=== PATIENT | female | born 1990 | race Caucasian/White ===

== ENCOUNTER → 2019-06-17 | Outpatient (REF) | payer OTHER, MEDICAID | LOC: M SFHCWAGY 13:15 | PROVIDERS: ATTEND Advanced Practice Midwife | DX: Z12.4 Encounter for screening for malignant neoplasm of cervix (principal) ==

== ENCOUNTER → 2019-06-28 | Outpatient (CLI) | payer OTHER ==
--- NOTE | 2019-06-28 11:30 | REP ---
Clinical: Anatomical evaluation. Comparison: None . Findings: Examination demonstrates a single live intrauterine in cephalic presentation. motion is identified by technologist. Placenta is noted left lateral and grade zero without evidence for placenta previa or abruption. Amniotic fluid volume is normal. Cervix measures 5.1 cm in length and appears closed. No evidence for nuchal cord. Gestational age by LMP 18 weeks 4 days with SANJEEV 11/25/2019 . Gestational age by current measurements 18 weeks 3 days with SANJEEV 11/26/2019 . FHR equals 147 beats per minute. BPD 4.2 cm 18 weeks 5 days HC 15.4 cm 18 weeks 2 days AC 13.1 cm 18 weeks 4 days FL 2.7 cm 18 weeks 3 days HL 2.6 cm 18 weeks 2 days HC/AC ratio 1.17 Estimated weight 243 grams (43rd percentile). Anatomical assessment demonstrates normal structures including cranium, choroid plexus, cavum, cerebellum/posterior fossa, lungs, diaphragm, stomach, cord insertion/three-vessel cord, kidneys/bladder, spine, and extremities. Impression: 1. Single live intrauterine in cephalic presentation demonstrating appropriate interval growth. 2. Limited evaluation of the facial features and heart/cardiac ventricular outflow tracts. Remainder of the anatomical assessment is complete and normal. Electronically Signed by Jonathan Quiles MD 06/28/2019 11:22 A
== END ==
LOC: M RAD 10:06
PROVIDERS: ATTEND Obstetrics & Gynecology
DX: Z34.81 Encounter for supervision of other normal pregnancy, first trimester (principal)

== ENCOUNTER → 2019-07-27 | Outpatient (CLI) | payer OTHER ==
--- NOTE | 2019-07-28 04:59 | REP ---
Clinical: Anatomical evaluation. Comparison: 06/28/2019 . Findings: Examination demonstrates a single live intrauterine in breech presentation. motion is identified by technologist. Placenta is noted left lateral and grade zero without evidence for placenta previa or abruption. Amniotic fluid volume is normal. Cervix measures 4.8 cm in length and appears closed. No evidence for nuchal cord. Gestational age by LMP 22 weeks 5 days with SANJEEV 11/25/2019 . Gestational age by current measurements 21 weeks 6 days. FHR equals 139 beats per minute. Estimated weight 486 grams ( 30th percentile). Anatomical assessment demonstrates normal structures including cranium, choroid plexus, cavum, cerebellum/posterior fossa, facial features (nose and lips), lungs, four-chamber heart, diaphragm, stomach, cord insertion/three-vessel cord, kidneys/bladder, and extremities. Impression: 1. Single live intrauterine in breech presentation demonstrating appropriate interval growth. 2. Continued limited evaluation of the facial profile and cardiac ventricular outflow tracts. Remainder of the anatomical assessment is complete and normal.
== END ==
LOC: M WHC 09:51
PROVIDERS: ATTEND Advanced Practice Midwife
DX: Z34.92 Encounter for supervision of normal pregnancy, unspecified, second trimester (principal); Z3A.22 22 weeks gestation of pregnancy

== ENCOUNTER → 2019-08-22 | Outpatient (REF) | payer OTHER | LOC: M LAB REF 15:08 | PROVIDERS: ATTEND Physician Assistant Medical | DX: R50.9 Fever, unspecified (principal) ==

== ENCOUNTER → 2019-10-14 | Outpatient (REF) | payer OTHER, MEDICAID ==
[2019-10-14 13:57] LABS: HEMATOCRIT 34.1 % (36.0-47.0); HEMOGLOBIN 11.8 g/dl (12.0-15.5); MEAN CORPUSCULAR HEMOGLOBIN 34.1 pg (27.0-33.0); MEAN CORPUSCULAR HGB CONC 34.6 g/dl (32.0-36.5); MEAN CORPUSCULAR VOLUME 98.6 fl (80.0-96.0); PLATELET COUNT, AUTOMATED 294 10^3/uL (150-450); RED BLOOD COUNT 3.46 10^6/uL (4.00-5.40); WHITE BLOOD COUNT 11.7 10^3/uL (4.0-10.0)
== END ==
LOC: M PLALAB 11:48
PROVIDERS: ATTEND Nurse Practitioner Women's Health
DX: Z34.03 Encounter for supervision of normal first pregnancy, third trimester (principal)

== ENCOUNTER → 2019-10-28 | Outpatient (REF) | payer OTHER, MEDICAID | LOC: M PLALAB 12:09 | PROVIDERS: ATTEND Advanced Practice Midwife | DX: Z36.85 Encounter for antenatal screening for Streptococcus B (principal); Z36.89 Encounter for other specified antenatal screening; Z3A.00 Weeks of gestation of pregnancy not specified ==

== ENCOUNTER 2019-12-02 03:03 | Inpatient (IN) | payer MEDICAID, OTHER ==
[2019-12-02] VITALS (19 sets, daily range): BP systolic 107–145; BP diastolic 57–89
[~2019-12-02] VITALS: Ht 162.6 cm; Wt 88.0 kg
[2019-12-02 04:12] LABS: HEMATOCRIT 33.6 % (36.0-47.0); MEAN CORPUSCULAR HEMOGLOBIN 34.3 pg (27.0-33.0); MEAN CORPUSCULAR HGB CONC 35.7 g/dl (32.0-36.5); PLATELET COUNT, AUTOMATED 261 10^3/uL (150-450); WHITE BLOOD COUNT 12.6 10^3/uL (4.0-10.0)
[2019-12-02] MEDS ORDERED: OMEP10CASR PO (04:54)
[2019-12-02] MEDS ORDERED: BUTORPHANOL 2 MG/ML INJ (J0595) As Ordered ONE (05:53)
[2019-12-02] MEDS ORDERED: PROMETHAZINE INJ 25 MG/ML VIAL (J2550) IV ONE ×2 (06:00→11:15)
[2019-12-02] MEDS ORDERED: BUTORPHANOL 2 MG/ML INJ (J0595) IV ONE ×2 (06:00→11:15)
[2019-12-02] MEDS: LR 1,000 ML IV SCH ×2 (06:28→17:04)
--- NOTE | 2019-12-02 15:47 | HPE ---
DATE OF ADMISSION: 12/02/2019 My is a 29-year-old 1, para 0 at 41 weeks gestation, estimated date of confinement (EDC) of 11/25/2019 based on last menstrual period. She presents to labor and delivery today with report of onset of uncomfortable contractions at approximately 12:30. She does deny leakage of fluid and does report positive bloody show. The fetus has been active. Her care was [facility] at [facility] at 17 weeks' gestation. course has been relatively uncomplicated. OBSTETRICAL HISTORY: Primigravida. OBSTETRIC LABORATORIES: O positive, antibody screen negative, syphilis negative, hepatitis B surface antigen negative, HIV negative, hepatitis C antibody nonreactive. Gonorrhea and chlamydia negative. Rubella immune. Urine culture negative. GBS negative. She did not undergo the 1-hour gestational diabetic screening. PAST MEDICAL HISTORY: Has never had a Pap smear. FAMILY HISTORY: Colorectal cancer. SURGERIES: None. SOCIAL HISTORY: The patient is . Her is not present with her. She is a nonsmoker. She denies alcohol and drug use. She denies history of any sexually transmitted infections, and she denies history of abuse, physical, sexual, and emotional. ALLERGIES: No known drug allergies. CURRENT MEDICATIONS: vitamins. OBJECTIVE: Pulse 96, blood pressure (BP) 145/89. She does appear very uncomfortable with her contractions. heart rate is 140 with moderate variability, positive accelerations, negative decelerations. Contractions every 2 minutes. They do palpate strong. Abdomen is gravid, cephalic presentation. Estimated weight 7-1/2 to 8 pounds. Sterile vaginal exam is 2, 90, and -3 per BRENDA Saxena. ASSESSMENT: Intrauterine at 41 weeks. heart rate category 2. Active labor. PLAN: Admit the patient to labor and delivery. Saline lock. Routine labs. Out of bed ad nadine at this time. The patient currently would like to cope with her labor physiologically and is encouraged to use hydrotherapy. I do anticipate continued labor progress and a spontaneous vaginal delivery.
[2019-12-02] MEDS ORDERED: OXYTOCIN 30 UNITS IN 0.9% NaCl 500ML IV BAG (J2590) As Ordered ONE (15:51)
[2019-12-02] MEDS ORDERED: OXYTOCIN DRIP 30 UNITS in IV 1 EA IV SCH (16:00)
[2019-12-02] MEDS ORDERED: FENTANYL 2MCG/ML ROPIVACAINE 0.2% IN 0.9% NACL 100ML IVBAG As Ordered ONE (16:15)
[2019-12-02] MEDS ORDERED: LACTATED RINGER'S 1000 ML IV PRN (17:15)
[2019-12-02] MEDS ORDERED: EPIDURAL/PCA KEYS XX PRN (17:15)
[2019-12-02] MEDS ORDERED: NALOXONE INJ 0.4MG/1ML VIAL (J2310 PER 1MG) IV PRN (17:15)
[2019-12-02] MEDS ORDERED: FENTANYL/ROPIVACAINE/NACL BAG 100 ML EPIDURAL SCH (17:15)
[2019-12-02] MEDS ORDERED: ONDANSETRON 4MG/2ML VIAL IV PRN (17:15)
[2019-12-02] MEDS ORDERED: ePHEDrine SULFATE 25 MG/5 ML(5MG/ML) SYRINGE IV PRN (17:15)
[2019-12-02] MEDS ORDERED: EPIDURAL COMMENT XX SCH (17:15)
[2019-12-02] MEDS ORDERED: diphenhydrAMINE 50MG/ML VIAL (J1200) IV PRN (17:15)
[2019-12-02] MEDS ORDERED: REFRIGERATOR IV KEYS XX PRN (17:15)
[2019-12-03] MEDS ORDERED: LR 1,000 ML IV SCH (02:57)
[2019-12-03] MEDS ORDERED: OXYTOCIN DRIP 30 UNITS in IV 1 EA IV SCH (02:57)
[2019-12-03] MEDS ORDERED: MEASLES,MUMPS,RUBELLA VACCINE INJ (MMR-II) (90707) SC SCH (03:00)
[2019-12-03] MEDS ORDERED: PROMETHAZINE 25 MG TAB PO PRN (03:00)
[2019-12-03] MEDS ORDERED: RHOGAM 300 MCG (1500 IU) INJ (J2790) IM SCH (03:00)
[2019-12-03] MEDS ORDERED: ACETAMINOPHEN TAB 650MG DOSE (2X325MG) PO PRN (03:00)
[2019-12-03] MEDS ORDERED: DIBUCAINE 1% OINTMENT 30GM TOP PRN (03:00)
[2019-12-03] MEDS ORDERED: IBUPROFEN 600 MG TAB PO PRN (03:00)
[2019-12-03] MEDS ORDERED: ACETAMINOPHEN 500 MG TAB PO PRN (03:00)
[2019-12-03] MEDS ORDERED: ONDANSETRON 4MG/2ML VIAL IV PRN (03:00)
[2019-12-03] MEDS ORDERED: DOCUSATE SODIUM 100 MG CAP PO PRN (03:00)
[2019-12-03] MEDS: IBUPROFEN 800 MG TAB PO PRN ×2 (05:32→14:24)
[2019-12-03 06:00] VITALS: BP 102/58
[2019-12-03] MEDS: PRENATAL VITAMINS CHEWABLE TABLET PO SCH (08:51)
[2019-12-03] MEDS ORDERED: SLF 3 ML SYR IV PRN (11:15)
[2019-12-03] MEDS: SLF 3 ML SYR IV SCH ×2 (14:12→22:00)
[2019-12-03 18:00] VITALS: BP 123/58
[2019-12-04 06:00] VITALS: BP 119/69
[2019-12-04] MEDS: SLF 3 ML SYR IV SCH (06:00)
--- NOTE | 2019-12-04 07:26 | IPNPDOC ---
Text Note Date of Service The patient was seen on 12/04/19. NOTE PP #1 Feels well. . Adequate pain management. Voiding VSS, afebrile, normotensive Breasts soft,nipples intact Fundus firm, down 1FB Lochia rubra light without odor Perineum well approximated PP #1 Routine care. Anticipate D/C in am VS,Fishbone, I+O VS, Fishbone, I+O Vital Signs Date Time Temp Pulse Resp B/P (MAP) Pulse Ox O2 Delivery O2 Flow Rate FiO2 12/04/19 06:00 97.0 80 18 119/69 (86) 12/03/19 06:00 97 Room Air Dania Campos CNM Dec 04, 2019 07:26
[2019-12-04] MEDS: PRENATAL VITAMINS CHEWABLE TABLET PO SCH (08:16)
[2019-12-04] MEDS ORDERED: INFLUENZA QUADRIVALENT PF VACCINE 0.5ML SYRINGE (90686) IM ONE (09:00)
[2019-12-04] MEDS ORDERED: BOOSTRIX/ADACEL VACCINE (DIPHTH/PERTUSS/ACELL/TETANUS) 0.5ML SYR IM ONE (09:00)
[2019-12-04 18:15] VITALS: BP 121/69
[2019-12-05 05:42] VITALS: BP 127/60
[2019-12-05] MEDS: PRENATAL VITAMINS CHEWABLE TABLET PO SCH (09:37)
== END 2019-12-05 13:40 | disposition home or self-care (01) | DRG 560 ==
LOC: M LDO 03:03 → M LDI 03:36 → M OBS 12-03 04:57
PROVIDERS: ADMIT Advanced Practice Midwife; ATTEND Advanced Practice Midwife
PROC: 10E0XZZ Delivery of Products of Conception, External Approach (ICD-10-PCS; principal; 2019-12-03)
PROC: 0KQM0ZZ Repair Perineum Muscle, Open Approach (ICD-10-PCS; 2019-12-03)
DX: O48.0 Post-term pregnancy (principal); O70.1 Second degree perineal laceration during delivery; Z37.0 Single live birth; Z3A.41 41 weeks gestation of pregnancy

== ENCOUNTER → 2021-03-06 | Outpatient (CLI) | payer MEDICAID, OTHER ==
[~2021-03-06] MED LIST: OMEP10CASR PO
[2021-03-06 14:00] LABS: HEMATOCRIT 37.2 % (36.0-47.0); HEMOGLOBIN 12.9 g/dl (12.0-15.5); MEAN CORPUSCULAR HEMOGLOBIN 33.3 pg (27.0-33.0); MEAN CORPUSCULAR HGB CONC 34.7 g/dl (32.0-36.5); MEAN CORPUSCULAR VOLUME 96.1 fl (80.0-96.0); RED BLOOD COUNT 3.87 10^6/uL (4.00-5.40); WHITE BLOOD COUNT 8.1 10^3/uL (4.0-10.0)
[2021-03-06 14:01] LABS: BASO % 0.2 % (0.0-1.0); EOS # 0.1 10^3/uL (0.0-0.5); LYMPH # 1.5 10^3/uL (1.5-5.0); LYMPH % 18.9 % (24.0-44.0); MONO # 0.6 10^3/uL (0.0-0.8); MONO % 6.8 % (2.0-8.0); NEUTROPHILS # 5.9 10^3/uL (1.5-8.5); NEUTROPHILS % 72.6 % (36.0-66.0); PLATELET COUNT, AUTOMATED 304 10^3/uL (150-450)
[2021-03-06 15:17] LABS: HEPATITIS C VIRUS ABY INDEX < 0.0 INDEX (<0.8); HIV 1&2 SCREEN CENTAUR NEGATIVE (NEGATIVE)
[2021-03-06 15:56] LABS: GC DNA AMPLIFICATION NEGATIVE (NEGATIVE)
== END ==
LOC: M PLALAB 11:00
PROVIDERS: ATTEND Obstetrics & Gynecology
DX: Z34.91 Encounter for supervision of normal pregnancy, unspecified, first trimester (principal); Z3A.00 Weeks of gestation of pregnancy not specified

== ENCOUNTER → 2021-05-08 | Outpatient (CLI) | payer OTHER, MEDICAID ==
--- NOTE | 2021-05-08 18:14 | REP ---
INDICATION: ANATOMY. COMPARISON: None. TECHNIQUE: Real-time and Doppler imaging utilizing the external transducer. FINDINGS: A single fetus is seen in varying presentation. The placenta is posterior and right lateral and grade 0. No evidence of previa is noted. The umbilical cord inserts in the midportion of the placenta and 3 vessels in cord are noted. The cervix measures 5.9 cm in length and is closed. The composite gestational age is 20 weeks and 0 days with an estimated date of delivery of 09/18/2021. No anomalies are identified. A heart rate of a 133 beats per minute was observed. A normal amount of amniotic fluid is present. Current weight is 392 g. The weight percentile is 69%. IMPRESSION: Single fetus in varying presentation at approximately 20 weeks 0 days with an estimated date of delivery of 09/18/2021. No abnormalities are identified. <Electronically signed by Chance Franco > 05/08/21 [id number]
== END ==
LOC: M WHC 13:08
PROVIDERS: ATTEND Obstetrics & Gynecology
DX: Z34.92 Encounter for supervision of normal pregnancy, unspecified, second trimester (principal)

== ENCOUNTER → 2021-06-26 | Outpatient (CLI) | payer OTHER, MEDICAID | LOC: M WHC 13:32 | PROVIDERS: ATTEND Obstetrics & Gynecology | DX: M79.605 Pain in left leg (principal) ==

== ENCOUNTER → 2021-06-26 | Outpatient (CLI) | payer OTHER ==
[2021-06-26 13:28] LABS: HEMATOCRIT 33.6 % (36.0-47.0); HEMOGLOBIN 11.6 g/dl (12.0-15.5); MEAN CORPUSCULAR HGB CONC 34.5 g/dl (32.0-36.5); MEAN CORPUSCULAR VOLUME 98.5 fl (80.0-96.0); PLATELET COUNT, AUTOMATED 265 10^3/uL (150-450); RED BLOOD COUNT 3.41 10^6/uL (4.00-5.40); WHITE BLOOD COUNT 11.3 10^3/uL (4.0-10.0)
== END ==
LOC: M PLALAB 08:23
PROVIDERS: ATTEND Obstetrics & Gynecology
DX: Z34.02 Encounter for supervision of normal first pregnancy, second trimester (principal)

== ENCOUNTER → 2021-08-24 | Outpatient (CLI) | payer OTHER | LOC: M LAB 08:17 | PROVIDERS: ATTEND Obstetrics & Gynecology | DX: R73.09 Other abnormal glucose (principal) ==

== ENCOUNTER → 2021-08-28 | Outpatient (REF) | payer OTHER, MEDICAID | LOC: M SFHCWAGY 15:20 | PROVIDERS: ATTEND Obstetrics & Gynecology | DX: Z34.93 Encounter for supervision of normal pregnancy, unspecified, third trimester (principal) ==

== ENCOUNTER → 2021-09-14 | Outpatient (CLI) | payer OTHER | LOC: M WHC 12:03 | PROVIDERS: ATTEND Obstetrics & Gynecology | DX: O26.843 Uterine size-date discrepancy, third trimester (principal) ==

== ENCOUNTER 2021-09-28 08:58 | Inpatient (IN) | payer OTHER, MEDICAID ==
[~2021-09-28] VITALS: Ht 162.6 cm; Wt 96.8 kg
[2021-09-28] VITALS (27 sets, daily range): BP systolic 88–210; BP diastolic 50–112
[2021-09-28] MEDS ORDERED: PRENTAB9 PO (09:35)
[2021-09-28] MEDS ORDERED: HOME MED LIST COMPLETE! XX SCH (09:35)
[2021-09-28] MEDS ORDERED: OXYTOCIN DRIP 30 UNITS in IV 1 EA IV PRN (09:40)
[2021-09-28] MEDS ORDERED: TRANEXAMIC ACID INJection 1,000 MG in NS 100 ML IV PRN (09:40)
[2021-09-28] MEDS ORDERED: METHYLERGONOVINE MALEATE 0.2 MG/ML VIAL (J2210) IM PRN (09:40)
[2021-09-28 10:06] LABS: HEMATOCRIT 37.1 % (36.0-47.0); HEMOGLOBIN 12.9 g/dl (12.0-15.5); MEAN CORPUSCULAR HEMOGLOBIN 34.1 pg (27.0-33.0); MEAN CORPUSCULAR HGB CONC 34.8 g/dl (32.0-36.5); MEAN CORPUSCULAR VOLUME 98.1 fl (80.0-96.0); PLATELET COUNT, AUTOMATED 221 10^3/uL (150-450); RED BLOOD COUNT 3.78 10^6/uL (4.00-5.40); WHITE BLOOD COUNT 11.4 10^3/uL (4.0-10.0)
[2021-09-28] MEDS ORDERED: FENTANYL 2MCG/ML ROPIVACAINE 0.2% IN 0.9% NACL 100ML IVBAG As Ordered ONE (10:48)
[2021-09-28] MEDS: LR 1,000 ML IV SCH ×2 (10:50→15:21)
[2021-09-28] MEDS ORDERED: ONDANSETRON 4MG/2ML VIAL IV PRN (11:35)
[2021-09-28] MEDS ORDERED: EPIDURAL/PCA KEYS XX PRN (11:35)
[2021-09-28] MEDS ORDERED: EPIDURAL COMMENT XX SCH (11:35)
[2021-09-28] MEDS ORDERED: REFRIGERATOR IV KEYS XX PRN (11:35)
[2021-09-28] MEDS ORDERED: ePHEDrine SULFATE 25 MG/5 ML(5MG/ML) SYRINGE IV PRN (11:35)
[2021-09-28] MEDS ORDERED: FENTANYL/ROPIVACAINE/NACL BAG 100 ML EPIDURAL SCH (11:35)
[2021-09-28] MEDS ORDERED: diphenhydrAMINE 50MG/ML VIAL (J1200) IV PRN (11:35)
[2021-09-28] MEDS ORDERED: NALOXONE INJ 0.4MG/1ML VIAL (J2310 PER 1MG) IV PRN (11:35)
[2021-09-28] MEDS ORDERED: LACTATED RINGER'S 1000 ML IV PRN (11:35)
[2021-09-28] MEDS ORDERED: CALCIUM CARBONATE 500 MG CHEW U/D PO PRN (15:10)
[2021-09-28] MEDS ORDERED: METHYLERGONOVINE MALEATE 0.2 MG TAB PO PRN (17:50)
[2021-09-28] MEDS ORDERED: ACETAMINOPHEN TAB 650MG DOSE (2X325MG) PO PRN (17:50)
[2021-09-28] MEDS ORDERED: OXYTOCIN DRIP 30 UNITS in IV 1 EA IV SCH (17:50)
[2021-09-28] MEDS ORDERED: ANUSOL HC CREAM 30GM TOP PRN (17:50)
[2021-09-28] MEDS ORDERED: RHOGAM 300 MCG (1500 IU) INJ (J2790) IM SCH (17:50)
[2021-09-28] MEDS ORDERED: MOM 30ML SUSPENSION UDC PO PRN (17:50)
[2021-09-28] MEDS ORDERED: DOCUSATE SODIUM 100MG CAPSULE PO PRN (17:50)
[2021-09-28] MEDS ORDERED: DIBUCAINE 1% OINTMENT 30GM TOP PRN (17:50)
[2021-09-28] MEDS ORDERED: ACETAMINOPHEN 500 MG TAB PO PRN (17:50)
[2021-09-28] MEDS ORDERED: MEASLES,MUMPS,RUBELLA VACCINE INJ (MMR-II) (90707) SC SCH (17:50)
[2021-09-28] MEDS ORDERED: IBUPROFEN 600MG TAB PO PRN (17:50)
[2021-09-28] MEDS: IBUPROFEN 800 MG TAB PO PRN (19:29)
[2021-09-29] MEDS: IBUPROFEN 800 MG TAB PO PRN ×2 (05:46→18:24)
[2021-09-29 06:00] VITALS: BP 122/59
[2021-09-29] MEDS: PRENATAL VITAMINS CHEWABLE TABLET PO SCH (09:33)
[2021-09-29 18:00] VITALS: BP 124/80
[2021-09-30 06:00] VITALS: BP 135/82
[2021-09-30] MEDS: PRENATAL VITAMINS CHEWABLE TABLET PO SCH (08:00)
[2021-09-30] MEDS: IBUPROFEN 800 MG TAB PO PRN (08:00)
[2021-09-30] MEDS ORDERED: BOOSTRIX/ADACEL VACCINE (DIPHTH/PERTUSS/ACELL/TETANUS) 0.5ML SYR IM ONE (09:00)
[2021-09-30] MEDS ORDERED: INFLUENZA QUADRIVALENT PF VACCINE 0.5ML SYRINGE IM ONE (09:00)
== END 2021-09-30 12:22 | disposition home or self-care (01) | DRG 560 ==
LOC: M LDO 08:58 → M LDI 09:35 → M OBS 19:30
PROVIDERS: ADMIT Obstetrics & Gynecology; ATTEND Obstetrics & Gynecology
PROC: 10E0XZZ Delivery of Products of Conception, External Approach (ICD-10-PCS; principal; 2021-09-28)
PROC: 0KQM0ZZ Repair Perineum Muscle, Open Approach (ICD-10-PCS; 2021-09-28)
DX: O48.0 Post-term pregnancy (principal); O69.82X0 Labor and delivery complicated by other cord entanglement, without compression, not applicable or unspecified; Z37.0 Single live birth; Z3A.41 41 weeks gestation of pregnancy; O70.1 Second degree perineal laceration during delivery

== ENCOUNTER → 2021-11-14 | Outpatient (REF) | payer OTHER, MEDICAID ==
[~2021-11-14] MED LIST changes: +PRENTAB9 PO
== END ==
LOC: M PLALAB 16:31
PROVIDERS: ATTEND Obstetrics & Gynecology
DX: Z12.4 Encounter for screening for malignant neoplasm of cervix (principal); R87.610 Atypical squamous cells of undetermined significance on cytologic smear of cervix (ASC-US)

== ENCOUNTER → 2024-01-26 | Outpatient (CLI) | payer OTHER | LOC: M PLAIMG 09:26 | PROVIDERS: ATTEND Physician Assistant Medical | DX: J32.0 Chronic maxillary sinusitis (principal); Z53.9 Procedure and treatment not carried out, unspecified reason ==

== ENCOUNTER → 2024-04-19 | Outpatient (CLI) | payer OTHER ==
[2024-04-19 13:49] LABS: HEMATOCRIT 36.9 % (36.0-47.0); HEMOGLOBIN 12.5 g/dl (12.0-15.5); MEAN CORPUSCULAR HEMOGLOBIN 33.2 pg (27.0-33.0); MEAN CORPUSCULAR HGB CONC 33.9 g/dl (32.0-36.5); MEAN CORPUSCULAR VOLUME 97.9 fl (80.0-96.0); PLATELET COUNT, AUTOMATED 291 10^3/uL (150-450); RED BLOOD COUNT 3.77 10^6/uL (4.00-5.40); WHITE BLOOD COUNT 10.5 10^3/uL (4.0-10.0)
[2024-04-19 14:41] LABS: HIV 1&2 SCREEN NEGATIVE (NEGATIVE)
[2024-04-19 14:50] LABS: HEPATITIS C VIRUS ABY INDEX 0.03 INDEX (<0.8)
[2024-04-19 15:07] LABS: GC DNA AMPLIFICATION NEGATIVE (NEGATIVE)
== END ==
LOC: M PLALAB 11:15
PROVIDERS: ATTEND Obstetrics & Gynecology
DX: Z34.81 Encounter for supervision of other normal pregnancy, first trimester (principal); Z3A.00 Weeks of gestation of pregnancy not specified

== ENCOUNTER → 2024-05-31 | Outpatient (CLI) | payer OTHER | LOC: M WHC 09:22 | PROVIDERS: ATTEND Nurse Practitioner Family | DX: O09.522 Supervision of elderly multigravida, second trimester (principal) ==

== ENCOUNTER → 2024-06-21 | Outpatient (CLI) | payer MEDICAID, OTHER ==
[2024-06-21 13:35] LABS: HEMATOCRIT 34.5 % (36.0-47.0); HEMOGLOBIN 11.7 g/dl (12.0-15.5); MEAN CORPUSCULAR HEMOGLOBIN 33.5 pg (27.0-33.0); MEAN CORPUSCULAR HGB CONC 33.9 g/dl (32.0-36.5); MEAN CORPUSCULAR VOLUME 98.9 fl (80.0-96.0); PLATELET COUNT, AUTOMATED 264 10^3/uL (150-450); RED BLOOD COUNT 3.49 10^6/uL (4.00-5.40); WHITE BLOOD COUNT 10.3 10^3/uL (4.0-10.0)
[2024-06-21 14:06] LABS: GLUCOSE CHALLENGE TEST 1 HOUR 161 MG/DL (LESS THAN 140)
[2024-06-21 14:25] LABS: GC DNA AMPLIFICATION NEGATIVE (NEGATIVE)
[2024-06-21 14:33] LABS: HIV 1&2 SCREEN NEGATIVE (NEGATIVE)
[2024-06-21 14:41] LABS: HEPATITIS C VIRUS ABY INDEX 0.02 INDEX (<0.8)
== END ==
LOC: M PLALAB 10:23
PROVIDERS: ATTEND Obstetrics & Gynecology
DX: Z34.93 Encounter for supervision of normal pregnancy, unspecified, third trimester (principal)

== ENCOUNTER → 2024-06-25 | Outpatient (CLI) | payer OTHER | LOC: M LAB 07:24 | PROVIDERS: ATTEND Obstetrics & Gynecology | DX: R73.02 Impaired glucose tolerance (oral) (principal) ==

== ENCOUNTER → 2024-08-26 | Outpatient (REF) | payer OTHER, MEDICAID ==
[~2024-08-26] MED LIST changes: +COLA100C5 PO; +IBUP80TA PO; +OXYC1TAB23 PO
== END ==
LOC: M SFHCWAGY 14:19
PROVIDERS: ATTEND Obstetrics & Gynecology
DX: Z34.93 Encounter for supervision of normal pregnancy, unspecified, third trimester (principal); Z3A.36 36 weeks gestation of pregnancy; Z36.85 Encounter for antenatal screening for Streptococcus B

== ENCOUNTER → 2024-09-01 | Outpatient (CLI) | payer OTHER ==
[~2024-09-01] MED LIST changes: -COLA100C5 PO; -IBUP80TA PO; -OXYC1TAB23 PO
== END ==
LOC: M WHC 14:37
PROVIDERS: ATTEND Nurse Practitioner Family
DX: O09.523 Supervision of elderly multigravida, third trimester (principal)

== ENCOUNTER 2024-09-28 17:05 | Inpatient (IN) | payer OTHER, MEDICAID ==
[~2024-09-28] VITALS: Ht 134.6 cm; Wt 100.4 kg
[2024-09-28 17:42] VITALS: BP 131/80
[2024-09-28 18:11] LABS: HEMATOCRIT 36.1 % (36.0-47.0); HEMOGLOBIN 12.8 g/dl (12.0-15.5); MEAN CORPUSCULAR HGB CONC 35.5 g/dl (32.0-36.5); PLATELET COUNT, AUTOMATED 255 10^3/uL (150-450); RED BLOOD COUNT 3.76 10^6/uL (4.00-5.40); WHITE BLOOD COUNT 10.9 10^3/uL (4.0-10.0)
[2024-09-28 18:29] VITALS: BP 132/81
[2024-09-28 19:07] LABS: HIV 1&2 SCREEN NEGATIVE (NEGATIVE)
[2024-09-28 19:15] LABS: HEPATITIS C VIRUS ABY INDEX 0.03 INDEX (<0.8)
[2024-09-28] MEDS: LR 1,000 ML IV SCH ×2 (19:15→23:00)
[2024-09-28] MEDS: BICITRA 30ML SOLN UDC PO ONE (19:18)
[2024-09-28] MEDS: LACTATED RINGER'S 1000 ML IV STA (19:19)
[2024-09-28] MEDS: ceFAZolin SODIUM 2 GM in DEXTROSE 5% (D5W) ADV/MINI-BAG 50 ML IV ONE (19:19)
[2024-09-28 19:22] VITALS: BP 117/60
[2024-09-28] MEDS ORDERED: ONDANSETRON 4MG 2ML VIAL As Ordered ONE (19:53)
[2024-09-28] MEDS ORDERED: PHENYLephrine 500MCG 5ML (100MCG/ML) SYRINGE As Ordered ONE (19:53)
[2024-09-28] MEDS ORDERED: KETOROLAC 30 MG/ML 1ML VIAL As Ordered ONE (19:53)
[2024-09-28] MEDS ORDERED: OXYTOCIN INJ 10UNITS/ML 1ML VIAL As Ordered ONE (19:54)
[2024-09-28] MEDS ORDERED: MORPHINE PRES-FREE INJ 10 MG/10 ML VIAL As Ordered ONE (19:58)
[2024-09-28 21:06] LABS: CORD GAS ABE A -2.1; CORD GAS HCO3 A 24.4 MMOL/L; CORD GAS O2 SAT A 33.7 %; CORD GAS PCO2 A 47.6 mmHg; CORD GAS PH A 7.327 UNITS; CORD GAS PO2 A 16.5 mmHg; CORD GAS TCO2 A 25.8 MMOL/L
[2024-09-28 21:09] LABS: CORD GAS ABE V -2.1; CORD GAS HCO3 V 23.4 MMOL/L; CORD GAS O2 SAT V 47.3 %; CORD GAS PCO2 V 42.6 mmHg; CORD GAS PH V 7.357 UNITS; CORD GAS PO2 V 19.9 mmHg; CORD GAS SBC V 21.3 MMOL/L; CORD GAS TCO2 V 24.7 MMOL/L
[2024-09-28] MEDS ORDERED: ePHEDrine SULFATE 25 MG/5 ML(5MG/ML) SYRINGE As Ordered ONE (21:10)
[2024-09-28] MEDS ORDERED: RHOGAM 300MCG (1500IU) INJ IM SCH (21:35)
[2024-09-28] MEDS ORDERED: PERCOCET 5MG/325MG TAB PO PRN ×2 (21:35)
[2024-09-28 22:33] VITALS: TEMP 97.3
[2024-09-28 23:00] VITALS: BP 124/57; O2SAT 100
[2024-09-28 23:30] VITALS: BP 118/69; O2SAT 100
[2024-09-29] VITALS (7 sets, daily range): BP systolic 99–113; BP diastolic 52–66; O2SAT 97–100
[2024-09-29] MEDS: KETOROLAC 30 MG/ML 1ML VIAL IV SCH (03:05)
[2024-09-29] MEDS ORDERED: COLA100C5 PO (07:23)
[2024-09-29] MEDS ORDERED: OXYC1TAB23 PO (07:23)
[2024-09-29] MEDS ORDERED: IBUP80TA PO (07:23)
[2024-09-29 07:43] LABS: HEMATOCRIT 30.5 % (36.0-47.0); MEAN CORPUSCULAR HEMOGLOBIN 33.5 pg (27.0-33.0); MEAN CORPUSCULAR HGB CONC 34.8 g/dl (32.0-36.5); MEAN CORPUSCULAR VOLUME 96.5 fl (80.0-96.0); PLATELET COUNT, AUTOMATED 235 10^3/uL (150-450); RED BLOOD COUNT 3.16 10^6/uL (4.00-5.40); WHITE BLOOD COUNT 14.9 10^3/uL (4.0-10.0)
[2024-09-29 07:52] LABS: HEMOGLOBIN 10.6 g/dl (12.0-15.5)
[2024-09-29] MEDS: PRENATAL VITAMINS CHEWABLE TABLET PO SCH (09:02)
[2024-09-29] MEDS: IBUPROFEN 800 MG TAB PO SCH (23:50)
[2024-09-29] MEDS: DOCUSATE SODIUM 100MG CAPSULE PO PRN (23:50)
[2024-09-29] MEDS: SIMETHICONE 80MG CHEW TAB PO PRN (23:50)
[2024-09-30 02:10] VITALS: BP 94/61; O2SAT 98
[2024-09-30 06:00] VITALS: BP 107/55; O2SAT 96
[2024-09-30] MEDS: MEASLES,MUMPS,RUBELLA VACCINE INJ (MMR-II) SC.IMMUN ONE (08:24)
== END 2024-09-30 13:30 | disposition home or self-care (01) | DRG 540 ==
LOC: M LDI 17:05 → M OBS 23:00
PROVIDERS: ADMIT Specialist; ATTEND Specialist
PROC: 10D00Z1 Extraction of Products of Conception, Low, Open Approach (ICD-10-PCS; principal; 2024-09-28 20:19)
DX: O32.1XX0 Maternal care for breech presentation, not applicable or unspecified (principal); O48.0 Post-term pregnancy; O09.523 Supervision of elderly multigravida, third trimester; Z37.0 Single live birth; Z3A.40 40 weeks gestation of pregnancy

== ENCOUNTER → 2025-03-29 | Outpatient (REF) | payer OTHER, MEDICAID ==
[~2025-03-29] MED LIST changes: +COLA100C5 PO; +IBUP80TA PO; +OXYC1TAB23 PO
== END ==
LOC: M SFHCWAGY 17:38
PROVIDERS: ATTEND Specialist
DX: Z12.4 Encounter for screening for malignant neoplasm of cervix (principal)